=== PATIENT | female | born 1930 | race Caucasian/White ===

== ENCOUNTER 2016-10-30 21:38 | Outpatient (CLI) ==
[2016-10-30 21:56] VITALS: BMI 43.4
== END 2016-10-30 21:39 ==
LOC: AMBL 21:38
PROVIDERS: ATTEND Internal Medicine Geriatric Medicine
DX: I46.9 Cardiac arrest, cause unspecified (principal); R40.2431 Glasgow coma scale score 3-8, in the field [EMT or ambulance]; R06.00 Dyspnea, unspecified

== ENCOUNTER 2016-10-30 21:49 | Emergency (ER) ==
[2016-10-30 21:56] VITALS: BP 0/0; TEMP 96; BMI 43.4
--- NOTE | 2016-10-30 23:13 | ED.PDOC ---
General ED Provider: Dr. BETH RODRIGUEZ Chief Complaint: Cardiac Arrest Stated Complaint: patient is brought by EMS after being found unresponsive. Upon placing her ont he monitor and getting an oral airway she was noted to be in A systole. She was then started on CPR. Per EMR she was CPR only. Upon arrival to the ER. Family arrived at the same time and stopped everything. She was un responsive with asystole and Pupils were fixed and Dilated. Pronouced at 2150 Time Seen by Physician: 21:40 Mode of Arrival: Ambulance Information Source: Family, [facility], EMT Exam Limitations: Clinical condition Primary Care Provider: JUANCHO ARGUETA Nursing and Triage Documentation Reviewed and Agree: Yes Cardiac Resuscitation - Cardiac Resuscitation Onset/Duration: Minutes (30) Witnessed Arrest: Yes Down-time Before BLS Initiated: 10 Airway Prehospital Findings: Reports: Patent (oral airway placed ) Breathing Prehospital Findings: Reports: Apnea Circulation/Rhythm Prehospital Findings: Reports: Pulses absent, Asystole Disability/Neurological Prehospital Findings: Reports: Unresponsive Airway Prehospital Intervention: Reports: Chin lift Breathing Prehospital Intervention: Reports: Oxygen, Bag-valve mask Circulation/Rhythm Prehospital Intervention: Reports: Chest compressions. Denies: Defibrillated, IV/IO placed, Epinephrine, Lidocaine, Atropine Breathing Prehospital Response: Absent: ETT in airway, Equal breath sounds Circulation/Rhythm Prehospital Response: Present: Asystole. Absent: Pulses present, Pulses absent, Sinus Bradycardia, V-Fib, V-Tach, PEA, Sinus, Sinus Tachycardia Total Down Time EMPLOYMENT OFFICE CLERK: 30 Airway ED Findings: Patent, Gag reflex absent Breathing ED Findings: Present: Apnea Circulation/Rhythm ED Findings: Present: Pulses absent, Asystole. Absent: V- Tach, PEA, Sinus, Sinus Tachycardia Disability/Neurological ED Findings: Present: Unresponsive Breathing ED Intervention: Bag-valve mask Circulation/Rhythm ED Intervention: Chest compressions (f) Circulation/Rhythm ED Response: Present: Pulses absent, Asystole Right Pupil: Fixed, Dilated Left Pupil: Fixed, Dilated Review Of Systems: Unable due to extremis EMS/Code Sheet Reviewed: Yes Patient is a DNR: No (DNI ) Resuscitation Successful: No Terminated At: 2150 Preliminary Cause of : sudden cardic Differential Diagnoses: Acute ND, Asystole, Sudden Past Medical History - Past Medical History Endocrine: Reports: Unknown Cardiovascular: Reports: Unknown Respiratory: Reports: Unknown Hematological: Reports: Other Gastrointestinal: Reports: Unknown Genitourinary: Reports: Unknown 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
== END 2016-10-30 23:00 | disposition expired ==
LOC: ED 21:49
DX: I46.9 Cardiac arrest, cause unspecified (principal)
CPT/HCPCS: 99285